=== PATIENT | female | born 1960 | race Two or more races ===

== ENCOUNTER 2023-11-15 08:19 | Outpatient (CLI) | payer OTHER ==
[~2023-11-15 08:19] MED LIST: SYNTHROID75 MCG; VASOTEC20 MG; VERAPAMIL HCL240 M1
== END 2023-11-15 08:31 | disposition home or self-care (01) ==
LOC: RX STUDY 08:19
DX: K44.9 Diaphragmatic hernia without obstruction or gangrene (principal); K21.9 Gastro-esophageal reflux disease without esophagitis